=== PATIENT | male | born 1965 | race Caucasian/White ===

== ENCOUNTER 2019-12-26 08:59 | Outpatient (CLI) | payer OTHER, SELFPAY | END 2019-12-26 09:00 | disposition home or self-care (01) | LOC: ANHAUDIO 09:00 | PROVIDERS: PCP Internal Medicine; Visit Provider Otolaryngology | DX: H93.13 Tinnitus, bilateral (principal); H90.3 Sensorineural hearing loss, bilateral | CPT/HCPCS: 92557; 92567 ==

== ENCOUNTER 2020-05-01 08:14 | Outpatient (CLI) | payer OTHER, SELFPAY ==
--- NOTE | ~2020-05-01 | NM_ITS ---
NM stress w perf spect multi Procedure: The patient was stressed using Modified Aleksey protocol. Prior to the end of exercise 30.8 mCi Tc 99m IV administered. Rest imaging performed following administration of 10.8 mCi Tc 99m IV. Images were reformatted into short axis, horizontal and vertical long axis sections for visual and q uantitative analysis. Indication: Chest pain Comparison: None Findings: Computer assisted qualitative and quantitative analysis of the immediate and delayed images revealed normal left ventricular perfusion without evidence of fixed or reversible perfusion abnorma lity to suggest ischemia or infarction. Normal left ventricular cavity size, wall motion and ejectio n fraction. Left ventricular ejection fraction measures 62%. Impression: 1: No scintigraphic evidence of resting or stress induced perfusion abnormality. 2: Normal left ventricle ejection fraction measuring 62%. Reviewed, dictated and finalized at location B. ECT DIRECTOR Impression: 1: No scintigraphic evidence of resting or stress induced perfusion abnormality . 2: Normal left ventricle ejection fraction measuring 62%.
--- NOTE | 2020-05-01 08:17 | EST_ITS ---
Patient Info Name: Garcia Keys Age: 54 years : 1965 Gender: Male Ht: 70 in Wt: 240 lbs BSA: 2.36 m2 HR: 71 bpm BP: 148 / 105 mmHg Heart Rhythm: Sinus Rhythm Exam Date: 05/01/2020 9:19 AM Exam Location: [facility] Stress Patient Status: Outpatient Admit Date: 05/01/2020 Staff Ordering Physician: Dm Li PA-C Attending Provider: Dm Li PA-C Exercise Physician: Rick Hernandez DO Exam Type: CA stress test treadmill w NM Study Info Indications R07.89 - Other chest pain A nuclear stress test was performed. Summary 1. 1. Negative Aleksey exercise stress test for ischemic ST changes by ECG criteria. 2. 2. Good functional capacity, achieving 10 METs of workload. 3. 3. Baseline hypertension. 4. 4. Appropriate HR response to exercise. 5. 5. Appropriate HR recovery at 1 minute post exercise. 6. 6. Nuclear scan to follow and will be reported separately. Please correlate with it. 7. 7. Patient informed of the above results. Protocol: Aleksey Stress ECG Details Stage: REST Duration (min): 0 min : 51 sec Speed (mph): 0.0 Grade (%): 0 HR (bpm): 71 SBP (mmHg): 148 DBP (mmHg): 105 METS: --- Stage: REST Duration (min): 3 min : 35 sec Speed (mph): 0.0 Grade (%): 0 HR (bpm): 80 SBP (mmHg): 148 DBP (mmHg): 105 METS: --- Stage: STAGE 1 Duration (min): 1 min : 0 sec Speed (mph): 1.7 Grade (%): 10 HR (bpm): 103 SBP (mmHg): 148 DBP (mmHg): 105 METS: --- Stage: STAGE 1 Duration (min): 2 min : 0 sec Speed (mph): 1.7 Grade (%): 10 HR (bpm): 108 SBP (mmHg): 148 DBP (mmHg): 105 METS: --- Stage: STAGE 1 Duration (min): 3 min : 0 sec Speed (mph): 1.7 Grade (%): 10 HR (bpm): 111 SBP (mmHg): 154 DBP (mmHg): 105 METS: --- Stage: STAGE 2 Duration (min): 1 min : 0 sec Speed (mph): 2.5 Grade (%): 12 HR (bpm): 122 SBP (mmHg): 154 DBP (mmHg): 105 METS: --- Stage: STAGE 2 Duration (min): 2 min : 0 sec Speed (mph): 2.5 Grade (%): 12 HR (bpm): 124 SBP (mmHg): 169 DBP (mmHg): 99 METS: --- Stage: STAGE 2 Duration (min): 3 min : 0 sec Speed (mph): 2.5 Grade (%): 12 HR (bpm): 126 SBP (mmHg): 169 DBP (mmHg): 99 METS: --- Stage: STAGE 3 Duration (min): 1 min : 0 sec Speed (mph): 3.4 Grade (%): 14 HR (bpm): 135 SBP (mmHg): 170 DBP (mmHg): 100 METS: --- Stage: STAGE 3 Duration (min): 2 min : 0 sec Speed (mph): 3.4 Grade (%): 14 HR (bpm): 144 SBP (mmHg): 170 DBP (mmHg): 100 METS: --- Stage: STAGE 3 Duration (min): 2 min : 59 sec Speed (mph): 3.4 Grade (%): 14 HR (bpm): 142 SBP (mmHg): 180 DBP (mmHg): 99 METS: --- Stage: RECOVERY Duration (min): 1 min : 0 sec Speed (mph): 0.0 Grade (%): 0 HR (bpm): 118 SBP (mmHg): 180 DBP (mmHg): 99 M
== END 2020-05-01 08:15 | disposition home or self-care (01) ==
LOC: ANHCARD 08:15
PROVIDERS: PCP Internal Medicine; Visit Provider Physician Assistant
DX: R07.9 Chest pain, unspecified (principal)
CPT/HCPCS: 78452; 93017; A9502

== ENCOUNTER 2021-07-02 07:24 | Outpatient (CLI) | payer OTHER, SELFPAY ==
--- NOTE | 2021-07-09 13:35 | WPDHOMESLEEP ---
Sleep Study - Home Unattended Date of Study: 07/02/21 Ordering Provider: Dm Li PA-C Interpreting Provider: Juanita Crowell, DO Home Sleep Study Type: Watch PAT Height: 1.8 m Weight: 99.79 kg Body Mass Index: 30.7 Neck Circumference (inches): 16.25 [place]: 9 Reason for Sleep Study Unrefreshing sleep and daytime hypersomnia Sleep History The patient is a 55-year-old male with hypertension, GERD, hyperlipidemia and right eye blindness that had a sleep study ordered his primary care for evaluation of sleep apnea. 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 He denies awakening from sleep short of breath. He rarely awakens at night with heartburn, belching or cough. He frequently snores loud enough that others complain. He rarely wakes up gasping for air throughout the night. He occasionally has breathing problems at night observed by himself or others. He denies sweating excessively at night. He rarely has heart palpitations or irregular heartbeats during the night. He denies falling asleep during the day as well as driving. He occasionally has trouble at work due to sleepiness. He denies sleep paralysis, cataplexy and hypnagogic / hypnopompic hallucinations. He denies having nightmares. He occasionally has thoughts racing through his mind. He denies feeling sad or depressed. He rarely has anxiety. He denies having muscular tension. He frequently notices parts of his body jerk. He frequently kicks during the night. He frequently has leg pain during the night. He denies grinding his teeth during sleep and awakening with morning jaw pain. He is occasionally bothered by pain during the day but rarely awakened by pain during the night. He occasionally wakes up feeling stiff in the morning with sore or achy muscles. He occasionally wakes up with pain in the neck, spine and other joints. He goes to bed at 8:00 p.m. on weekdays and 10:00 p.m. on the weekends. It takes him less than a minute to fall asleep. He wakes up 3 times throughout the night to use the restroom. He is able to fall back asleep immediately. He wakes up at 3:15 a.m. on weekdays and between 6 and a.m. on the weekends. He typically gets 6-8 hours of sleep per night. He will stay in bed 4 or 5-10 minutes after waking up in the morning on the weekends. He currently lives with his and children. He does not consume any caffeinated beverages within 2 hours of bedtime. He does not engage in physical exercise before bedtime. He will watch television before falling asleep. He will take naps in afternoon or the evening and they are refreshing. He drinks 4 cups of coffee per day. He will drink 2 beers per week. He denies tobacco and recreational drug use. [facility] Past Medical History Medical History Acute medial meniscus tear of left knee Essential hypertension GERD (gastroesophageal reflux disease) HLD (hyperlipidemia) Vision loss Family History Family History Other Diabetes mellitus Family history of arthritis Family history of cardiovascular disease Family history of malignant neoplasm Hypertension Social History Social History Smoking status: Never smoker Second hand tobacco smoke exposure: No Alcohol intake: current Medications Home Medications Medication Instructions Recorded Confirmed Type glucosamine sulfate 500 1 tablet PO TID 08/31/19 06/13/21 History mg-chondroitin 400 mg-msm 167 mg tablet krill [id number]-5-dha-epa 300 cap PO 08/31/19 06/13/21 History mg-90 mg (27 mg-45 mg) capsule turmeric 400 mg capsule mg PO 08/31/19 06/13/21 History coenzyme [id number] E 100 mg-100 cap PO 03/25/21 06/13/21 History unit capsule lansoprazole 30 mg capsule,delayed 30 mg PO DAILY #90 cap 03/25/21 06/13/21 Rx release lisinopril
[2021-07-09 13:47] VITALS: BMI 30.7
== END 2021-07-04 14:13 | disposition home or self-care (01) ==
LOC: ANHCSM 07:25
PROVIDERS: PCP Internal Medicine; Visit Provider Physician Assistant
DX: G47.33 Obstructive sleep apnea (adult) (pediatric) (principal); G47.10 Hypersomnia, unspecified
CPT/HCPCS: 95800

== ENCOUNTER 2021-12-09 16:29 | Outpatient (CLI) | payer OTHER, SELFPAY ==
--- NOTE | ~2021-12-09 | CT_ITS ---
EXAMINATION: CT sinus wo con DATE: 12/09/2021 16:54 INDICATION: Sinusitis. Reconstruction surgery in 1988 TECHNIQUE: Computed tomography (CT) of the paranasal sinuses was performed without contrast. Iterativ e reconstruction technique was employed. Exam dose: 319.20 mGy-cm total exam DLP. COMPARISON: None FINDINGS: There is postoperative change including plates and screws at the bilateral frontozygomatic suture areas and bilateral anterior maxillary regions, with evidence of multiple old bilateral nasal and facial fractures including prominent old depressed fractures of the anterior and lateral mendez of the left maxillary sinus in particular. Old left zygomatic arch fracture. Likely old left inferior o rbital rim fracture. The nasal turbinates are prominent, particularly on the right. Minimal deviation of the nasal septum. There is a left nasal antral window. There is minimal mucoperiosteal thickening of the right frontal sinus. There is an opacified left eth moid air cell. The paranasal sinuses are otherwise relatively well aerated. The mastoid air cells are unremarkable. IMPRESSION: Postoperative change for multiple old facial fractures Left nasal antral window Minimal new comparison thickening of the right frontal sinus and an opacified left ethmoid air cell; paranasal sinuses and mastoid air cells otherwise are relatively well aerated Reviewed, dictated and finalized at Location A. Reviewed, dictated and finalized at location B. IMPRESSION: Postoperative change for multiple old facial fractures Left nasal antral window Minimal new comparison thickening of the right frontal sinus and an opacified l eft ethmoid air cell; paranasal sinuses and mastoid air cells otherwise are rel atively well aerated
== END 2021-12-09 16:30 | disposition home or self-care (01) ==
PROVIDERS: PCP Internal Medicine; Visit Provider Otolaryngology
DX: J32.9 Chronic sinusitis, unspecified (principal); Z87.898 Personal history of other specified conditions; J34.89 Other specified disorders of nose and nasal sinuses; J34.2 Deviated nasal septum; R44.8 Other symptoms and signs involving general sensations and perceptions
CPT/HCPCS: 70486

== ENCOUNTER → 2022-03-04 17:04 | Outpatient (CLI) | payer OTHER, SELFPAY ==
--- NOTE | ~2022-03-04 | MR_ITS ---
MRI of the right ankle Clinical history: Arthritis Technique: Coronal proton-density and proton-density fat-sat images, axial proton-density, proton-den sity fat-sat, and STIR images, and sagittal proton-density fat-sat and proton-density and STIR images were acquired. Findings: Orthopedic screw is present traversing the medial malleolus, with 2 additional screws trave rsing horizontally through the talus. There is associated susceptibility artifact. Syndesmotic ligaments appear to be intact, with some scar remodeling of the anterior and posterior di stal tibiofibular ligaments. Integrity of the anterior talofibular ligament cannot be confirmed, and there is suspected chronic full-thickness tear. Posterior talofibular ligament is probably intact. Ca lcaneofibular ligament not clearly visualized, suspected to be torn. Medial flexor tendons, peroneal tendons, anterior extensor tendons, and Achilles tendon are intact. There is advanced osteoarthritis with high-grade contemplation joint space narrowing involving the la teral half of the tibiotalar joint. There are small chronic fracture fragments about the lateral mall eolus, compatible with chronic posttraumatic change. There is probable moderate to advanced degenerat stanley change of the posterior subtalar facet. There is probable mild degenerative changes of the talona vicular articulation. There is moderate degenerative change of the calcaneocuboid joint. Plantar fascia is intact. No soft tissue mass or fluid collection clearly identified. IMPRESSION: Postoperative changes of the ankle, as noted above. Correlate with surgical history. There is associa lalita susceptibility artifact which somewhat limits evaluation in some areas. Advanced osteoarthritis of the lateral half of the tibiotalar joint. Additional moderate degenerative changes involving the posterior subtalar facet, calcaneocuboid joint, and talonavicular articulation . 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 Reviewed, dictated and finalized at location [] GER RN CASE IMPRESSION: Postoperative changes of the ankle, as noted above. Correlate with surgical his tory. There is associated susceptibility artifact which somewhat limits evaluat ion in some areas. Advanced osteoarthritis of the lateral half of the tibiotalar joint. Additional moderate degenerative changes involving the posterior subtalar facet, calcaneo cuboid joint, and talonavicular articulation. 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
== END ==
PROVIDERS: PCP Internal Medicine; Visit Provider Podiatrist Foot & Ankle Surgery
DX: M19.071 Primary osteoarthritis, right ankle and foot (principal)
CPT/HCPCS: 73721

== ENCOUNTER 2024-09-11 07:16 | Outpatient (CLI) | payer OTHER, SELFPAY ==
--- NOTE | ~2024-09-11 | US_ITS ---
ABDOMINAL AORTIC ULTRASOUND (Grayscale and Doppler ultrasound interrogation techniques used as needed for this exam.) Ordering provider: Aaron Rodríguez APRN History: . Z82.49 - Family history of ischemic heart disease and oth... . Comparison: None. Findings: ABDOMINAL AORTA: Proximal: AP Measures 1.5 cm in caliber which is normal in caliber. Transverse diameter is 2.2 cm. Mid: AP Measures 1.9 cm in caliber which is normal in caliber. Transverse measures 2.5 cm. Distal: Measures 1.7 cm in caliber which is normal in caliber. Transverse diameter measures 2 cm. Proximal iliac arteries: Normal in caliber.. Measures 1.1 and 1.2 cm bilaterally. Transverse measure s 1.5 and 1.4 cm. Normal color Doppler flow is seen within the abdominal aorta and iliac arteries. IMPRESSION: 1. NORMAL ULTRASOUND OF THE ABDOMINAL AORTA. Reviewed, dictated and finalized at location A.
== END 2024-09-11 07:17 | disposition home or self-care (01) ==
LOC: ANHIMG 07:17
PROVIDERS: PCP Internal Medicine; Visit Provider Nurse Practitioner
DX: Z82.49 Family history of ischemic heart disease and other diseases of the circulatory system (principal)
CPT/HCPCS: 76775

== ENCOUNTER 2024-12-18 00:11 | Day surgery (SDC) | payer OTHER, SELFPAY ==
[2024-12-05 09:02] VITALS: BMI 32.1
--- OUTSIDE RECORDS SUMMARY | 2024-12-18 00:14 | XMS_ITS | Clinical Summary ---
Author Organization [facility] Address [address] [place] [address] Care Team Providers Care Third Cook Name Role Phone Brian Palomino Primary Care Provider Source Comments [facility],non-owned Affiliates and Associated Physician Practices is amultiple site organization consisting of ambulatory clinics and hospital sitesin [place], [place], [place] and [place]. This disclosure is being madepursuant to the Care Everywhere program and may not contain all information available regarding this patient. Last updated 17.[facility] Allergies No known active allergies Medications * Be aware that medications may not be up to date on this document. Alwaysverify current medications with the patient. lansoprazole (PREVACID) 30 MG capsule Take 1 capsule by mouth every 24 hours Active simvastatin (ZOCOR) 40 MG tablet Take 1 tablet by mouth every 24 hours Active Glucosamine-Cho ndroit-Vit C-Mn (GLUCOSAMINE 1500 COMPLEX PO) Active CHONDROITIN SULFATE PO Active Olean-3 Fatty Acids (FISH OIL) 1000 MG capsule Active Multiple Vitamin (MULTI-VITAMIN DAILY PO) Active Coenzyme Q10 (CO Q-10) 300 MG Active Cinnamon 500 MG Acti ve TURMERIC PO Active Active Problems Problem Noted Date Diagnosed Date Cyst of left lower eyelid 06/26/2019 Left hand pain 05/11/2019 Trigger finger of left thumb 05/11/2019 Right hand pain 07/21/2017 Trigger finger of right thumb 07/21/2017 Family History Medical History Relation Name Comments Hypertension Father Cancer - Other Mother Relation Name Status Comments Father Mother Social History Tobacco Use Types Packs/Day Years Used Date Smoking Tobacco: Never Smokeless Tobacco: Never Alcohol Use Standard Drinks/Week Comments Yes 0 (1 standard drink = 0.6 oz pur e alcohol) social Sex and Gender Information Value Date Recorded Sex Assigned at Not on file Legal 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 Gender Identity Not on file Sexual Orientation Not on file Plan of Treatment Health Maintenance Due Date Last Done Comments COLOGUARD (AGES 45-75) - COL ON CA SCREENING 1965 COLON MONITORING 1965 COLONOSCOPY - COLON CA SCREENING 1967 CT COLONOGRAPHY - COLON CA SCREENING 1965 Colorectal Cancer Screening 1965 FIT - COLON CA SCREENING 1965 FLEX SIG - COLON CA SCREENING 1965 HIV SCREENING 08/05/1982 HEPATITIS C SCREENING 08/01/1985 DTAP/TDAP/TD VACCINES (1 - Tdap) 08/05/1986 HEPATITIS B VACCINE (1 of 3 - 19+ 3-dose series) 08/05/1986 PNEUMOCOCCAL VACCINE 50+ (1 of 1 - PCV) 08/05/2017 ZOSTER VACCINE (1 of 2) 08/05/2017 DEPRESSION SCREENING 03/22/2024 COVID-19 VACCINE (1 - 2023-2 5 season) 2024 INFLUENZA VACCINE (#1) 2024 01/20/2016 HIB VACCINE Aged Out No longer eligi ble based on patient's age to complete this topic HPV VACCINE Aged Out No longer eligi ble based on patient's age to complete this topic MENINGOCOCCAL (Group B) VACC INE SHARED DECISION-MAKING Aged Out No longer eligibl e based on patient's age to complete this topic MENINGOCOCCAL GROUPS A/C/Y/W VACCINE Aged Out No longer eligible b ased on patient's age to complete this topic Insurance [facility] Care Teams Third Cook Relationship Specialty Start Date End Date Brian Palomino DO [address] [place] [address] PCP - General 05/11/19
[2024-12-18 06:46] VITALS: BP 137/105; PULSE 81; RESP 16; TEMP 36.7; O2SAT 97; BMI 33.0
[2024-12-18] MEDS: LACTATED RINGERS 1,000 ML 150 ML IV CONT (06:52)
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
--- NOTE | 2024-12-18 08:19 | S_PTH ---
PATIENT: Garcia Keys LOC: [facility] #:[id number] AGE/SX: 59/M ROOM: RE12/18/[address]: Prabhu Sanchez MD : 1965 BED: DIS: 12/18/2024 SPEC #: [id number] RECD: 12/18/24 10:58 STATUS: SANDIE RELeila #: [id number] ANNIKA: 12/18/24 08:[address]: Prabhu Sanchez DEPT: [facility] Surgical RECD BY: Minna Ibarra ENTERED: 12/18/24 10:58 SP TYPE: Surgical OTHR DR: Brett Smith, Tissues: A - Colon Polypectomy B - Colon Polypectomy Procedures: Hematoxylin and Eosin Stain Gross and Microscopic Level 4
[2024-12-18 08:22] VITALS: BP 133/94; PULSE 84; RESP 24; O2SAT 97
[2024-12-18 08:32] VITALS: BP 133/96; PULSE 81; RESP 16; O2SAT 97
[2024-12-18 08:42] VITALS: BP 145/108; PULSE 79; RESP 16; O2SAT 98
== END 2024-12-18 08:48 | disposition home or self-care (01) ==
PROVIDERS: PCP Internal Medicine; Referring Provider Nurse Practitioner; Visit Provider Internal Medicine Gastroenterology
PROC: 0DJD8ZZ Inspection of Lower Intestinal Tract, Via Natural or Artificial Opening Endoscopic (ICD-10-PCS; CPT 45378; principal; 2024-12-18 08:00)
DX: Z12.11 Encounter for screening for malignant neoplasm of colon (principal); D12.3 Benign neoplasm of transverse colon; K63.5 Polyp of colon; K64.8 Other hemorrhoids; K57.30 Diverticulosis of large intestine without perforation or abscess without bleeding; E03.9 Hypothyroidism, unspecified; I10 Essential (primary) hypertension; K21.9 Gastro-esophageal reflux disease without esophagitis; E78.00 Pure hypercholesterolemia, unspecified; G47.33 Obstructive sleep apnea (adult) (pediatric); E66.9 Obesity, unspecified; Z68.33 Body mass index [BMI] 33.0-33.9, adult; Z80.0 Family history of malignant neoplasm of digestive organs; Z82.49 Family history of ischemic heart disease and other diseases of the circulatory system
CPT/HCPCS: 45385; 88305; J2003; J2704; J7120